=== PATIENT | male | born 1960 | race Caucasian/White ===

== ENCOUNTER 2017-02-11 11:41 | Inpatient (IN) | payer MEDICAID ==
[~2017-02-11] VITALS: Ht 165.1 cm; Wt 53.2 kg
[2017-02-11 12:16] LABS: microscopic required? NO
[2017-02-11 12:34] LABS: BASOPHIL % 0.4 % (0-2); PLATELET COUNT 218 x10^3mcL (130-400); RED CELL DISTRIBUTION WIDTH 13.3 % (11.5-14.5)
[2017-02-11 12:41] LABS: UA SPECIFIC GRAVITY <=1.005 (1.005-1.035); urine erythrocyte NEGATIVE (NEGATIVE)
[2017-02-11 12:45] LABS: CARBON DIOXIDE 30.7 mmol/L (21-32); CHLORIDE SERUM 91 mmol/L (98-107); CREATININE SERUM 1.6 mg/dL (0.7-1.3); GFR1 48 mL/min; POTASSIUM SERUM 4.5 mmol/L (3.5-5.1); SODIUM SERUM 127 mmol/L (136-145)
[2017-02-11 12:54] LABS: ALBUMIN 3.4 g/dL (3.4-5.0); ALKALINE PHOSPHATASE 150 U/L (46-116); ALT/SGPT 46 U/L (16-63); AST/SGOT 30 U/L (15-37); BILIRUBIN TOTAL 0.46 mg/dL (0.20-1.00); CK-MB 1.8 ng/mL (0-3.6); TOTAL PROTEIN, SERUM 7.5 g/dL (6.4-8.2)
[2017-02-11 12:55] LABS: T3 TOTAL 0.65 ng/mL
[2017-02-11 13:01] LABS: FREE T4 1.28 ng/dL (0.76-1.46); FREE THYROXINE INDEX 3.3 ug/dL (1.4-4.5); T4(THYROXINE) 9.6 ug/dL (4.7-13.3)
[2017-02-11 13:23] LABS: GLUCOSE SERUM 758 mg/dL (74-106)
[2017-02-11 13:24] LABS: ERYTHROCYTE SED RATE 17 mm/hr (0-20)
[2017-02-11 13:34] LABS: C REACTIVE PROTEIN < 0.2 mg/dL (<=0.9)
[2017-02-11 14:41] VITALS: BP 105/64
[2017-02-11 15:09] LABS: CHOLESTEROL/HDL RATIO 3.2; PHOSPHOROUS 3.9 mg/dL (2.5-4.9)
[2017-02-11 15:46] LABS: AMPHETAMINE QUAL UR NONE DETECTED (NEG <=1000)
[2017-02-11 17:32] VITALS: BP 134/82
[2017-02-11 18:21] LABS: CALCIUM 7.8 mg/dL (8.5-10.1); CARBON DIOXIDE 27.8 mmol/L (21-32); CHLORIDE SERUM 105 mmol/L (98-107); CREATININE SERUM 0.8 mg/dL (0.7-1.3); GFR1 > 60 mL/min; GLUCOSE SERUM 177 mg/dL (74-106); POTASSIUM SERUM 3.8 mmol/L (3.5-5.1); SODIUM SERUM 137 mmol/L (136-145)
[2017-02-11 20:30] VITALS: BP 130/75
[2017-02-12 05:16] VITALS: BP 127/75
[2017-02-12 06:59] LABS: CALCIUM 7.9 mg/dL (8.5-10.1); CARBON DIOXIDE 24.5 mmol/L (21-32); CHLORIDE SERUM 106 mmol/L (98-107); CREATININE SERUM 0.8 mg/dL (0.7-1.3); GFR1 > 60 mL/min; GLUCOSE SERUM 154 mg/dL (74-106); POTASSIUM SERUM 3.9 mmol/L (3.5-5.1); SODIUM SERUM 138 mmol/L (136-145)
[2017-02-12 07:05] LABS: BASOPHIL % 0.6 % (0-2); PLATELET COUNT 190 x10^3mcL (130-400); RED CELL DISTRIBUTION WIDTH 13.1 % (11.5-14.5)
[2017-02-12 09:38] VITALS: BP 119/73
[2017-02-12 12:41] VITALS: BP 119/73
[2017-02-12] MEDS ORDERED: LIPI10 PO (12:48)
[2017-02-12] MEDS ORDERED: ECO81 PO (12:48)
[2017-02-12] MEDS ORDERED: COL100 PO (12:51)
[2017-02-12] MEDS ORDERED: METFORMIN HCL1000 MG PO (12:52)
[2017-02-12] MEDS ORDERED: GLIPIZIDE2.5 M1 PO (13:00)
[2017-02-12] MEDS ORDERED: ONDANSETRON4 M3 PO (13:00)
[2017-02-12 13:36] VITALS: BP 120/79
[2017-02-12 14:57] LABS: BASOPHIL % 0.7 % (0-2); PLATELET COUNT 200 x10^3mcL (130-400); RED CELL DISTRIBUTION WIDTH 13.1 % (11.5-14.5)
== END 2017-02-12 15:23 | disposition home or self-care (01) | DRG 420 ==
LOC: ED 11:41 → DU 13:26
PROVIDERS: Specialist; ADMIT Family Medicine
DX: E11.00 Type 2 diabetes mellitus with hyperosmolarity without nonketotic hyperglycemic-hyperosmolar coma (NKHHC) (principal); N17.0 Acute kidney failure with tubular necrosis; K31.84 Gastroparesis; E11.43 Type 2 diabetes mellitus with diabetic autonomic (poly)neuropathy; E11.51 Type 2 diabetes mellitus with diabetic peripheral angiopathy without gangrene; E11.65 Type 2 diabetes mellitus with hyperglycemia; R13.10 Dysphagia, unspecified; E78.5 Hyperlipidemia, unspecified; E05.80 Other thyrotoxicosis without thyrotoxic crisis or storm; E78.1 Pure hyperglyceridemia; Z68.1 Body mass index [BMI] 19.9 or less, adult; Z87.891 Personal history of nicotine dependence; Z79.84 Long term (current) use of oral hypoglycemic drugs; Z91.14 Patient's other noncompliance with medication regimen
CPT/HCPCS: 36600; 82962; 83880; 84439; 90658; J1815; J7030; J8597; Q0092

== ENCOUNTER 2019-01-10 16:14 | Inpatient (IN) | payer MEDICAID ==
[~2019-01-10] VITALS: Ht 162.6 cm; Wt 54.5 kg
[~2019-01-10 16:14] MED LIST: COL100 PO; ECO81 PO; GLIPIZIDE2.5 M1 PO; LANTUS SOLOS100 U/M1 SQ; LIPI10 PO; METFORMIN HCL1000 MG PO; METFORMIN HYDR500 M1 PO; NEU100 PO; ONDANSETRON4 M3 PO
[2019-01-10 16:21] VITALS: Ht 162.6 cm; Wt 54.5 kg
[2019-01-10 17:19] LABS: BASOPHIL % 0.6 % (0-2); PLATELET COUNT 232 x10^3mcL (130-400); RED CELL DISTRIBUTION WIDTH 13.4 % (11.5-14.5)
[2019-01-10 17:31] LABS: CHLORIDE SERUM 96 mmol/L (98-107); GFR1 > 60 mL/min; GLUCOSE SERUM 385 mg/dL (74-106); POTASSIUM SERUM 4.5 mmol/L (3.5-5.1); SODIUM SERUM 130 mmol/L (136-145)
[2019-01-10 17:44] LABS: ALKALINE PHOSPHATASE 147 U/L (46-116); ALT/SGPT 61 U/L (16-63); AST/SGOT 45 U/L (15-37); BILIRUBIN TOTAL 0.26 mg/dL (0.20-1.00); T4(THYROXINE) 10.1 ug/dL (4.7-13.3); TOTAL PROTEIN, SERUM 7.3 g/dL (6.4-8.2)
[2019-01-10 17:46] LABS: ALBUMIN 3.3 g/dL (3.4-5.0)
[2019-01-10 18:10] LABS: microscopic required? YES; urine erythrocyte TRACE (NEGATIVE)
[2019-01-10] MEDS ORDERED: METFORMIN HYDR500 M1 PO (18:59)
[2019-01-10 19:17] LABS: AMPHETAMINE QUAL UR NONE DETECTED (See below)
[2019-01-10 19:54] VITALS: BP 148/88
[2019-01-10 20:07] VITALS: BP 148/88
[2019-01-11] VITALS (8 sets, daily range): BP systolic 89–140; BP diastolic 46–85
[2019-01-11 06:17] LABS: BASOPHIL % 0.5 % (0-2); PLATELET COUNT 229 x10^3mcL (130-400); RED CELL DISTRIBUTION WIDTH 13.5 % (11.5-14.5)
[2019-01-11 06:28] LABS: CALCIUM 8.9 mg/dL (8.5-10.1); CARBON DIOXIDE 29.4 mmol/L (21-32); CHLORIDE SERUM 103 mmol/L (98-107); CREATININE SERUM 0.9 mg/dL (0.7-1.3); GFR1 > 60 mL/min; GLUCOSE SERUM 146 mg/dL (74-106); MAGNESIUM 1.4 mg/dL (1.8-2.4); PHOSPHOROUS 4.1 mg/dL (2.5-4.9); POTASSIUM SERUM 4.3 mmol/L (3.5-5.1); SODIUM SERUM 138 mmol/L (136-145)
[2019-01-12 05:02] VITALS: BP 100/68
[2019-01-12 06:10] LABS: BASOPHIL % 0.5 % (0-2); PLATELET COUNT 228 x10^3mcL (130-400); RED CELL DISTRIBUTION WIDTH 13.4 % (11.5-14.5)
[2019-01-12 06:20] LABS: CALCIUM 7.9 mg/dL (8.5-10.1); CARBON DIOXIDE 27.2 mmol/L (21-32); CHLORIDE SERUM 105 mmol/L (98-107); CREATININE SERUM 0.8 mg/dL (0.7-1.3); GFR1 > 60 mL/min; GLUCOSE SERUM 228 mg/dL (74-106); MAGNESIUM 1.6 mg/dL (1.8-2.4); PHOSPHOROUS 3.2 mg/dL (2.5-4.9); POTASSIUM SERUM 4.2 mmol/L (3.5-5.1); SODIUM SERUM 138 mmol/L (136-145)
[2019-01-12 08:49] VITALS: BP 105/68
[2019-01-12] MEDS ORDERED: GLUCOTROL5 MG PO (11:38)
[2019-01-12] MEDS ORDERED: ATORVASTATIN CA20 M1 PO (11:39)
[2019-01-12] MEDS ORDERED: LANTI SQ (11:40)
[2019-01-12] MEDS ORDERED: GLUCOCARD EXPR1 EAC2 MC (11:43)
[2019-01-12] MEDS ORDERED: FERROUS SULFAT325 M2 PO (11:45)
[2019-01-12] MEDS ORDERED: COLACE100 MG PO (11:45)
[2019-01-12 12:31] VITALS: BP 161/95
[2019-01-12 14:39] VITALS: BP 161/95
== END 2019-01-12 16:15 | disposition home or self-care (01) | DRG 426 ==
LOC: ED 16:14 → DU 18:40
PROVIDERS: Emergency Medicine; ADMIT Internal Medicine
DX: E87.1 Hypo-osmolality and hyponatremia (principal); E11.65 Type 2 diabetes mellitus with hyperglycemia; E44.1 Mild protein-calorie malnutrition; R19.7 Diarrhea, unspecified; R55 Syncope and collapse; T38.3X6A Underdosing of insulin and oral hypoglycemic [antidiabetic] drugs, initial encounter; D53.9 Nutritional anemia, unspecified; Z79.84 Long term (current) use of oral hypoglycemic drugs; Z79.4 Long term (current) use of insulin; Y92.009 Unspecified place in unspecified non-institutional (private) residence as the place of occurrence of the external cause
CPT/HCPCS: 82962; 87046; 87046-59; 90658; 90732; G0378; J7030; J7040; Q0092

== ENCOUNTER 2020-01-27 09:05 | Inpatient (IN) | payer MEDICAID, SELFPAY ==
[~2020-01-27] VITALS: Ht 167.6 cm; Wt 55.5 kg
[~2020-01-27 09:05] MED LIST changes: +ATORVASTATIN CA20 M1 PO; +COLACE100 MG PO; +FERROUS SULFAT325 M2 PO; +GLUCOCARD EXPR1 EAC2 MC; +GLUCOTROL5 MG PO; +LANTI SQ
[2020-01-27 09:06] VITALS: Ht 167.6 cm; Wt 55.5 kg
--- NOTE | 2020-01-27 09:13 | NUR ---
DAUGHTER CONTACT RUT SPRING [phone]
--- NOTE | 2020-01-27 09:25 | NUR ---
PT ARRIVED TO ED BROUGHT IN FROM HOME WITH COMPLAINTS OF BODY ACHES, WEAKNESS, FATIGUE AND FEVER THAT STARTED THIS AM @ AROUND 0400. PT DENIES ANY SOB OR COUGH. PT ARRIVED TO ED WITH TEMP OF 102, TYLENOL AND MOTRIN GIVEN IN TRIAGE. PT WEARING JACKET, HEAD COVERING, PANTS, SOCKS AND WRAPPED IN BLANKET STATING, "I FEEL COLD" INFORMED PT OF THE RESULTS OF HAVING A HIGH FEVER WILL CAUSE FEELING OF BEING COLD, PT VERABLIZED UNDERSTANDING. PT CHANGED INTO GOWN, REMOVED SOCKS AND HEAD COVER. PT SKIN WARM AND DIAPHORETIC TO THE TOUCH. PT LOOKS TO BE IN NO ACUTE DISTRESS. RESPIRATIONS E/U ON ROOM AIR. SIDE RAILS UP X2. WILL CONTINUE TO MONITOR.
--- NOTE | 2020-01-27 09:40 | NUR ---
LAB AT BEDSIDE
--- NOTE | 2020-01-27 09:50 | NUR ---
EKG IN PROGRESS
--- NOTE | 2020-01-27 09:55 | NUR ---
XRAY AT BEDSIDE
[2020-01-27 10:11] LABS: BASOPHIL % 0.3 % (0-2); PLATELET COUNT 257 x10^3mcL (130-400); RED CELL DISTRIBUTION WIDTH 14.5 % (11.5-14.5)
[2020-01-27 10:17] LABS: CALCIUM 9.1 mg/dL (8.5-10.1); CARBON DIOXIDE 20.1 mmol/L (21-32); CHLORIDE SERUM 105 mmol/L (98-107); CREATININE SERUM 1.5 mg/dL (0.7-1.3); GFR1 51 mL/min; GLUCOSE SERUM 120 mg/dL (74-106); POTASSIUM SERUM 4.1 mmol/L (3.5-5.1); SODIUM SERUM 130 mmol/L (136-145)
[2020-01-27 10:23] LABS: ALBUMIN 3.4 g/dL (3.4-5.0); ALKALINE PHOSPHATASE 57 U/L (46-116); ALT/SGPT 33 U/L (16-63); AST/SGOT 21 U/L (15-37); BILIRUBIN TOTAL 0.3 mg/dL (0.20-1.00); LACTIC DEHYDROGENASE (LDH) 180 U/L (100-190); TOTAL PROTEIN, SERUM 7.2 g/dL (6.4-8.2)
[2020-01-27] MEDS ORDERED: MOXIFLOXACIN3 ML OD (10:30)
[2020-01-27 10:32] LABS: C REACTIVE PROTEIN < 0.2 mg/dL (<=0.9)
--- NOTE | 2020-01-27 10:35 | NUR ---
PT DAUGHTER INFORMED OF PT HOME MEDS, DAUGHTER STATES PT IS SCHEDULED TO HAVE CATARACTS SURGERY SUNDAY 01/28 AND IS TO START TAKING EYE DROPS THIS WEEKEND COLLECTED MED IN CASE OF ADMISSION. DAUGHTER ALSO REQUESTING TO GIVE PT HIS PHONE, PROVIDED PT W/ CELL PHONE AND SPLITTER MACHINE.
--- NOTE | 2020-01-27 10:44 | NUR ---
PT STATES UNABLE TO URINATE AT THIS TIME. NS 1L BOLUS GIVEN, WILL ATTEMPT TO COLLECT URINE AGAIN.
--- NOTE | 2020-01-27 11:33 | NUR ---
3RD ATTEMPT TO RETRIEVE URINE SAMPLE. PT STATES UNABLE TO URINATE AT THIS TIME AND OFTEN HAS DIFFICULTY URINATING AT HOME. PT STATES IS MEETING W/ PCP REGARDING URINATING ISSUE. PER DR WAGONER NO NEED FOR URINE SAMPLE AT THIS TIME.
--- NOTE | 2020-01-27 11:40 | NUR ---
DR. WAGONER MADE AWARE OF BP 75/43 WILL MEDICATE ACCORDING TO EMAR
--- NOTE | 2020-01-27 11:41 | NUR ---
PT STATES COMMONLY HAS LOW BP AND TAKES A MED AT HOME FOR LOW BP, PT DOES NOT RECAL MED NAME
[2020-01-27 12:36] LABS: MAGNESIUM 1.7 mg/dL (1.8-2.4); PHOSPHOROUS 3.9 mg/dL (2.5-4.9)
--- NOTE | 2020-01-27 12:36 | NUR ---
SPOKE WITH DAUGHTER RUT AND INFORMED FOR POSSIBLE ADMISSION. PER DAUGHTER, PT ONLY TAKES INSULIN, VITAMINS AND WILL NEED TO START TAKING EYE DROPS FOR SCHEDULED SURGERY ON WEDNESDAY.
[2020-01-27 12:41] LABS: CHOLESTEROL/HDL RATIO 2.3
--- NOTE | 2020-01-27 13:18 | NUR ---
PT BLOOD PRESSURE 87/49 MAP 58. PT IS ASYMPTOMATIC OF HYPOTENSION AT THIS TIME. INFORMED DR. WAGONER OF LOW BP, PER DR. WAGONER, VERIFY WITH ADMITTING DR. SUZY GUERRERO OKAY TO GO TO TELE WITH LOW BP, SPOKE WITH EXCAVATOR OPERATOR SUZY GUERRERO, VERIFIED OKAY FOR PT TO GO TO TELE LONG PT IS ASYMPTOMATIC. WILL TRANSPORT TO TELE
--- NOTE | 2020-01-27 13:20 | NUR ---
REPORT GIVEN TO JAYA HONG.
--- NOTE | 2020-01-27 13:59 | NUR ---
RECEIVED PATIENT FROM ER ABLE TO WALK TO BED, ALERT/ORIENTED X4, DENIED PAIN. PT STATE "FEEL DIZZY", ASSIST PT SITUATED IN BED, PLACE T6 SR W/ HR 86, CHECK BP 75/47, MAP 59. REPEAT BP 84/50, MAP 59, RR 11. ORIENTED TO CALL LIGHT AND INSTRUCT PATIENT NOT TO GET UP W/O HELP. PT VERBALIZE UNDERSTAND. EXPLAINED PT IS IN COVID UNIT AND BEING TEST FOR COVID. PT VERBALIZE HE HAS NOT COME IN CONTACT W/ COVID BUT HE IS AROUND PEOPLE IN [place]. CARE ENDORSE TO COLT HONG.
[2020-01-27 14:05] VITALS: BP 84/50
[2020-01-27 14:51] LABS: microscopic required? YES; urine erythrocyte NEGATIVE (NEGATIVE)
[2020-01-27 17:04] VITALS: BP 88/56
[2020-01-27 18:16] VITALS: BP 88/56
--- NOTE | 2020-01-27 18:44 | NUR ---
PERFORMED BLADDER SCAN FOR PT: INDICATED 193 ML FLUID IN BLADDER. ALSO ASKED PT TWICE IF HE HAD THE URGE TO URINATE, STATED NO. WILL ENDORSE TO WHEEL OF FORTUNE DEALER RN.
--- NOTE | 2020-01-27 18:58 | NUR ---
PT AWAKE AND ALERT IN BED, EATING DINNER. APPEARED DROWSY AT TIMES, AROUSABLE WITH VERBAL AND TACTILE STIMULATION. DENIES SHIPMAN AT THIS TIME. ON TELE 6, SR, HR 90. DENIES CP AND PRESSURE. PULSES +, NO EDEMA NOTED AT THIS TIME. LUNG SOUNDS CTA, ON RA 96% O2 SAT. DENIES SOB. BOWEL SOUNDS +, DENIES N/V. PT STATED HE HAS DIFFICULTY URINATING, PERFORMED BLADDER SCAN (193 ML). PT HAS GENERALIZED WEAKNESS, SHAKINESS IN BUE NOTED. DRY SCAB NOTED ON LLE, FEDERAL AGENT. DENIES PAIN AT THIS TIME. IV ON RFA 20G, SL. ALL NEEDS ATTENDED, CALL LIGHT WITHIN REACH. BED IN LOWEST POSITION. WILL ENDORSE CARE TO FINISHER HAND RN.
[2020-01-27 20:20] VITALS: BP 88/51
--- NOTE | 2020-01-27 20:48 | NUR ---
PT AWAKE, ALERT, ORIENTED X4, ROMANIAN SPEAKING ONLY, BREATH SOUNDS CLEAR, RESP EVEN AND UNLABORED. DENIES ANY PAIN. NOT IN ANY FORM OF DISTRESS. FAMILY CALLED AND UPDATED THEM WITH PTS PLAN OF CARE, THEY VERBALIZED UNDERSTANDING WITH ALL THE EDUCATION PROVIDED, ALL THEIR QUESTION WERE ANSWERED.
[2020-01-28 05:58] VITALS: BP 91/50
--- NOTE | 2020-01-28 06:41 | NUR ---
PT SLEPT WELL AT NIGHT, DENIES ANY PAIN, NO ACUTE DISTRESS NOTED, WILL CONTINUE TO MONITOR.
[2020-01-28 06:46] LABS: BASOPHIL % 0.4 % (0-2); PLATELET COUNT 238 x10^3mcL (130-400)
[2020-01-28 07:08] LABS: CALCIUM 8.7 mg/dL (8.5-10.1); CARBON DIOXIDE 18.7 mmol/L (21-32); CHLORIDE SERUM 110 mmol/L (98-107); CREATININE SERUM 1.1 mg/dL (0.7-1.3); GFR1 > 60 mL/min; GLUCOSE SERUM 150 mg/dL (74-106); POTASSIUM SERUM 4.7 mmol/L (3.5-5.1); SODIUM SERUM 139 mmol/L (136-145)
--- NOTE | 2020-01-28 07:30 | NUR ---
RECEIVED REPORT FROM VICE PRESIDENT OF HUMAN RESOURCES RN. PT LAYING IN BED SLEEPING. NO ACUTE DISTRESS NOTED. ON TELE 6, HR 95, NSR. PULSES +, NO EDEMA NOTED AT THIS TIME. LUNG SOUNDS CTA, ON RA. NO SOB NOTED. BOWEL SOUNDS +. VICE PRESIDENT OF HUMAN RESOURCES NURSE STATED PTS UO 800 (URINAL) LAST NIGHT. WILL CONTINUE TO MONITOR THROUGHOUT SHIFT. HAS GENERALIZED WEAKNESS BUT IS AMBULATORY. SLIGHT BUE SHAKINESS NOTED. DRY SCAB ON L DIAZ, SERVICE TECHNICIAN COPIER, NO DRAINAGE. IV ON RFA 20G SALINE LOCKED. ALL NEEDS ATTENDED. CALL LIGHT WITHIN REACH. BED IN LOWEST POSITION.
[2020-01-28 07:45] LABS: RED CELL DISTRIBUTION WIDTH 14.6 % (11.5-14.5)
--- NOTE | 2020-01-28 08:02 | NUR ---
SPOKE WITH REFRIGERATION INSTALLER SUZY ABOUT UPDATES ON PTS BP LAST BP 91/50 MAP 63 AND PTS INTAKE AND URINE UO. SHE HAD NO ADDITIONAL ORDERS AT THIS TIME. WILL FOLLOW UP IF NEEDED.
[2020-01-28 08:32] VITALS: BP 97/54
--- NOTE | 2020-01-28 10:51 | NUR ---
SPOKE WITH PTS SON AND DAUGHTER IN [place], SUSAN. AWARE OF PTS CARE, ANSWERED ALL THEIR QUESTIONS, HAD NO ADDITIONAL QUESTIONS AT THIS TIME.
[2020-01-28 12:54] VITALS: BP 103/61
--- NOTE | 2020-01-28 15:31 | NUR ---
PCR RESULTED NEGATIVE, NOTIFIED SUZY(N.P. ATTENDING), ORDER RECEIVED TO D/C ISOLATION. COLT HONG ASSIGNED TO THIS PT MADE AWARE OF ABOVE.
--- NOTE | 2020-01-28 17:09 | NUR ---
PTS BS 41, RECHECKED 2ND TIME BS WAS 40. PT IS ALERT, ORIENTED, RESPONSIVE. ADMINISTERED D50 IVP. WILL RECHECK BS IN 15 MINS.
--- NOTE | 2020-01-28 17:26 | NUR ---
RECHECKED PTS BS, 162. PT AWAKE AND ALERT, RESPONSIVE. NOTIFIED INVESTIGATIVE WRITER SUZY VIA TELEPHONE. WILL FOLLOW UP IF NEEDED.
--- NOTE | 2020-01-28 18:59 | NUR ---
PT LAYING IN BED AND SLEEPING. NO ACUTE DISTRESS NOTED AT THIS TIME. TELE 6, NSR, HR 88. NO SOB NOTED AT THIS TIME. ON RA. NO N/V AT THIS TIME. PT VOIDED 850 AND HAS URINAL AT BEDSIDE. HAS GENERALIZED WEAKNESS, SHAKINESS IS RESOLVED AT THIS TIME. IV ON RFA 20G PATENT AND FLUSHING. WILL ENDORSE CARE TO SCREENING UNIT REGISTERED NURSE RN.
--- NOTE | 2020-01-28 20:00 | NUR ---
RECEIVED PATIENT IN BED SLEEPING , AAO X 4 KOREAN SPEAKING, NO DISTRESS, O2 SAT 96% IN ROOM AIR, NO C/O PAIN AT THIS TIME. CALL LIGHT WITHIN REACH.
[2020-01-28 20:06] VITALS: BP 110/65; BP 99/57
--- NOTE | 2020-01-28 21:07 | NUR ---
BS 190 REGULAR INSULIN 3 UNITS GIVEN SQ, SNACK GIVEN FOR PREVENTING HYPOGLYCEMIA. WILL CLOSE MONITOR.
--- NOTE | 2020-01-29 00:21 | NUR ---
PATIENT IS AWAKE, GIVEN ROCEPHINE IVPB, NO REACTION NOTED, IV SITE AT LEFT FOREARM IS CLEAR. NO C/O PAIN OR DISCOMFORT AT THIS TIME.
--- NOTE | 2020-01-29 06:37 | NUR ---
PATIENT IS AWAKE AND ALERT RESTING IN BED, BS CHECKED 216 , REGULAR INSULIN 6 UNITS SQ GIVEN ORDERED, CRACKER GIVEN BEFORE BREAKFAST TO PREVENT SUGAR DROP.
[2020-01-29 06:53] LABS: BASOPHIL % 0.5 % (0-2); PLATELET COUNT 241 x10^3mcL (130-400); RED CELL DISTRIBUTION WIDTH 14.4 % (11.5-14.5)
--- NOTE | 2020-01-29 07:25 | NUR ---
RECEIVED PT FROM SURGICAL SPECIALIST. ASSESSED AND WILL DOCUMENT. SLEEPING THIS TIME. AROUSABLE AND VERBALLY RESPONDING. STABLE. NO SOB NOTED. DENIES ANY PAIN. SAFTEY PRECAUTIONS ARE IN PLACE. WILL MONITOR.
[2020-01-29 07:31] LABS: C REACTIVE PROTEIN 5.6 mg/dL (<=0.9); CALCIUM 8.4 mg/dL (8.5-10.1); CARBON DIOXIDE 24.2 mmol/L (21-32); CHLORIDE SERUM 107 mmol/L (98-107); CREATININE SERUM 1.2 mg/dL (0.7-1.3); GFR1 > 60 mL/min; GLUCOSE SERUM 232 mg/dL (74-106); SODIUM SERUM 138 mmol/L (136-145)
[2020-01-29] MEDS ORDERED: VENTOLIN H0.09 MG/A1 INH (08:27)
[2020-01-29] MEDS ORDERED: MEDROL DOSEPAK4 MG PO (08:28)
[2020-01-29] MEDS ORDERED: ZITHROMAX TRI-500 MG PO (08:28)
[2020-01-29] MEDS ORDERED: METFORMIN HCL1000 MG PO (08:29)
[2020-01-29 08:40] VITALS: BP 91/51
--- NOTE | 2020-01-29 10:00 | NUR ---
PT RESTING IN BED COMFORTABLY. DENIES ANY PAIN. PT IS AWARE ABOUT HE WILL BE DC HOME TODAY. HE SAID HE IS GOING TO CALL HIS FAMILY. PT IS STABLE.
[2020-01-29 11:56] VITALS: BP 131/108
[2020-01-29 13:12] VITALS: BP 131/108
[2020-01-29 14:08] VITALS: BP 103/61
--- NOTE | 2020-01-29 15:00 | NUR ---
FAMILY IS HERE TO INSURANCE ACCOUNT SPECIALIST PT. DC INSTRUCTIONS GIVEN. PB SIGNED AND SENT WITH PT. IV REMOVED AND DRESSING APPLIED. TELE REMOVED AND RETURNED. DENIES ANY PAIN. STABLE. BOX BLANK MACHINE OPERATOR HELPER WHEELED PT DOWN TO [facility].
--- NOTE | 2020-01-29 16:40 | NUR ---
Discount pharmacy card and list to low cost medical clinics given to patient.
== END 2020-01-29 15:14 | disposition home or self-care (01) | DRG 139 ==
LOC: ED 09:05 → DU 11:57
PROVIDERS: Specialist; ADMIT Internal Medicine; ATTEND Internal Medicine
DX: J18.9 Pneumonia, unspecified organism (principal); R65.11 Systemic inflammatory response syndrome (SIRS) of non-infectious origin with acute organ dysfunction; J96.00 Acute respiratory failure, unspecified whether with hypoxia or hypercapnia; I95.9 Hypotension, unspecified; E87.1 Hypo-osmolality and hyponatremia; E83.42 Hypomagnesemia; E86.0 Dehydration; E11.9 Type 2 diabetes mellitus without complications; Z20.828 Contact with and (suspected) exposure to other viral communicable diseases; Z79.4 Long term (current) use of insulin; B34.9 Viral infection, unspecified
CPT/HCPCS: 36600; 82962; 83880; 85378; 87804; G0378; J0456; J0696; J3490; J3535; J7030; J7050; U0003

== ENCOUNTER 2020-04-15 09:53 | Inpatient (IN) | payer SELFPAY ==
[~2020-04-15] VITALS: Ht 162.6 cm; Wt 69.9 kg
[~2020-04-15 09:53] MED LIST changes: +MEDROL DOSEPAK4 MG PO; +MOXIFLOXACIN3 ML OD; +VENTOLIN H0.09 MG/A1 INH; +ZITHROMAX TRI-500 MG PO
[2020-04-15 10:05] VITALS: Ht 162.6 cm; Wt 69.9 kg
[2020-04-15 10:43] LABS: BASOPHIL % 0.8 % (0.2-1.5); PLATELET COUNT 370 x10^3mcL (152-348); RED CELL DISTRIBUTION WIDTH 13.7 % (12.1-16.2)
[2020-04-15 11:00] LABS: CALCIUM 8.7 mg/dL (8.5-10.1); CARBON DIOXIDE 30.6 mmol/L (21-32); CREATININE SERUM 1.7 mg/dL (0.7-1.3); POTASSIUM SERUM 3.8 mmol/L (3.5-5.1)
[2020-04-15 11:04] LABS: BILIRUBIN TOTAL 0.19 mg/dL (0.20-1.00)
[2020-04-15 11:08] LABS: ALBUMIN 2.3 g/dL (3.4-5.0); TOTAL PROTEIN, SERUM 6.1 g/dL (6.4-8.2)
[2020-04-16] VITALS (7 sets, daily range): BP systolic 93–164; BP diastolic 22–78
[2020-04-16 09:00] LABS: BASOPHIL % 0.5 % (0.2-1.5); PLATELET COUNT 334 x10^3mcL (152-348); RED CELL DISTRIBUTION WIDTH 13.7 % (12.1-16.2)
[2020-04-16 09:13] LABS: CARBON DIOXIDE 29.3 mmol/L (21-32); CHLORIDE SERUM 105 mmol/L (98-107); GFR1 > 60 mL/min; GLUCOSE SERUM 216 mg/dL (74-106); POTASSIUM SERUM 3.2 mmol/L (3.5-5.1); SODIUM SERUM 138 mmol/L (136-145)
[2020-04-17 05:52] VITALS: BP 96/60
[2020-04-17 07:01] LABS: BASOPHIL % 0.9 % (0.2-1.5); PLATELET COUNT 357 x10^3mcL (152-348); RED CELL DISTRIBUTION WIDTH 13.5 % (12.1-16.2)
[2020-04-17 07:46] LABS: CALCIUM 7.6 mg/dL (8.5-10.1); CARBON DIOXIDE 24.7 mmol/L (21-32); CHLORIDE SERUM 107 mmol/L (98-107); GFR1 > 60 mL/min; GLUCOSE SERUM 220 mg/dL (74-106); MAGNESIUM 1.7 mg/dL (1.8-2.4); POTASSIUM SERUM 3.8 mmol/L (3.5-5.1); SODIUM SERUM 140 mmol/L (136-145)
[2020-04-17 08:27] VITALS: BP 104/65
[2020-04-17 10:05] VITALS: BP 111/68
[2020-04-17 12:13] VITALS: BP 131/67
[2020-04-17 17:23] VITALS: BP 115/77
[2020-04-17 20:44] VITALS: BP 109/66
[2020-04-18 05:05] VITALS: BP 131/77
[2020-04-18 07:42] LABS: CALCIUM 7.5 mg/dL (8.5-10.1); CARBON DIOXIDE 24.5 mmol/L (21-32); CHLORIDE SERUM 105 mmol/L (98-107); GFR1 > 60 mL/min; GLUCOSE SERUM 162 mg/dL (74-106); POTASSIUM SERUM 3.7 mmol/L (3.5-5.1); SODIUM SERUM 136 mmol/L (136-145)
[2020-04-18 08:12] LABS: BASOPHIL % 0.7 % (0.2-1.5); PLATELET COUNT 385 x10^3mcL (152-348); RED CELL DISTRIBUTION WIDTH 13.8 % (12.1-16.2)
[2020-04-18 08:37] VITALS: BP 127/78
[2020-04-18] MEDS ORDERED: FLA250 PO (11:30)
[2020-04-18] MEDS ORDERED: BIA500 PO (11:30)
[2020-04-18] MEDS ORDERED: AMO500 PO (11:30)
[2020-04-18] MEDS ORDERED: LIPI20 PO (11:30)
[2020-04-18] MEDS ORDERED: PRI20 PO (11:31)
[2020-04-18] MEDS ORDERED: GLIMEPIRIDE2 M1 PO (11:31)
[2020-04-18] MEDS ORDERED: VENTOLIN H0.09 MG/A1 INH (11:31)
[2020-04-18] MEDS ORDERED: FER300 PO (11:31)
[2020-04-18] MEDS ORDERED: NEU100 PO (11:32)
[2020-04-18 12:28] VITALS: BP 137/80
[2020-04-18 13:40] VITALS: BP 137/80
== END 2020-04-18 16:41 | disposition home or self-care (01) | DRG 377 ==
LOC: ED 09:53 → DU 11:57
PROVIDERS: Emergency Medicine; Family Medicine; Internal Medicine Gastroenterology; ADMIT Internal Medicine; ATTEND Internal Medicine
PROC: 30233N1 Transfusion of Nonautologous Red Blood Cells into Peripheral Vein, Percutaneous Approach (ICD-10-PCS; principal; 2020-04-15)
PROC: 0DB68ZX Excision of Stomach, Via Natural or Artificial Opening Endoscopic, Diagnostic (ICD-10-PCS; 2020-04-16 12:00)
PROC: 0DBG8ZZ Excision of Left Large Intestine, Via Natural or Artificial Opening Endoscopic (ICD-10-PCS; 2020-04-17)
DX: K92.2 Gastrointestinal hemorrhage, unspecified (principal); E43 Unspecified severe protein-calorie malnutrition; Z20.822 Contact with and (suspected) exposure to COVID-19; D64.9 Anemia, unspecified; E11.65 Type 2 diabetes mellitus with hyperglycemia; W18.39XA Other fall on same level, initial encounter; Y93.89 Activity, other specified; Y92.89 Other specified places as the place of occurrence of the external cause; Y99.8 Other external cause status; R55 Syncope and collapse; S00.83XA Contusion of other part of head, initial encounter; Z68.21 Body mass index [BMI] 21.0-21.9, adult
CPT/HCPCS: 43235; 45378; 82962; C9113; G0378; J1200; J1450; J1610; J2250; J2310; J2765; J2916; J3010; J3490; J3535; J7040; J7042; J7050; P9016; U0003